=== PATIENT | female | born 1970 | race Two or more races ===

== ENCOUNTER 2025-02-06 00:50 | Emergency (ER) | payer MEDICAID, OTHER ==
[~2025-02-06] VITALS: Ht 162.6 cm; Wt 113.6 kg
[2025-02-06] MEDS: SODIUM CHLORIDE 0.9% 1,000 ML IV ONE (01:00)
--- NOTE | 2025-02-06 01:15 | ED.PDOC ---
GI ASSESSMENT HPI Comments 54-year-old female who came to ER for rectal pain. Patient does have history of hemorrhoids, has been complaining of rectal pain for over a month, that the worsened in the past 2 days. Denies any rectal bleeding or abdominal pain at this time. She reports rectal bleeding 6 months ago. Patient also complaining of headaches. REVIEW OF SYSTEMS: General: No fever, no chills, or fatigue HEENT: No sore throat, no earache, no congestion, no neck pain. Cardiac: No chest pain. No palpitations. Lungs: No shortness of breath, no cough. GI: No nausea, no vomiting, no diarrhea, no constipation, no abdominal pain, (+) rectal pain : No dysuria, frequency, or urgency. No hematuria. Musculoskeletal: No joint pain , no joint swelling, no extremity edema. Skin: No rash, no itching. Neuro: + headache, no dizziness, no weakness EXAM: General: Awake, alert and oriented. No acute distress. Skin: Skin in warm, dry and intact. Appropriate color for ethnicity. HEENT: The head is normocephalic and atraumatic. Conjunctivae are clear without exudates or hemorrhage. Sclera is non-icteric. EOM are intact. No signs of nystagmus. Eyelids are normal in appearance without swelling or lesions. Oral mucosa is pink and moist Neck: The neck is supple with normal range of motion. No JVD. Cardiac: Heart rate and rhythm are normal. No murmurs, gallops, or rubs are auscultated. Respiratory: No signs of respiratory distress. Lung sounds are clear in all lobes bilaterally without rales, rhonchi, or wheezes. Abdominal: Abdomen is soft, non-tender without distention. Bowel sounds are present and normoactive in all four quadrants. : Rectal exam-+ hemorrhoids.+tenderness. No active bleeding. Lidocaine jelly applied. Extremities: Upper and lower extremities are atraumatic in appearance without deformity or edema. Neurological: The patient is awake, alert and oriented to person, place, and time with normal speech. Speech is clear. There is no facial asymmetry. Psychiatric: Appropriate mood and affect. Good judgement and insight Chief Complaint: Rectal Pain Time Seen by MD: 01:15 Reviewed Notes: Nurses Notes Allergies: Coded Allergies: NO KNOWN ALLERGIES (Unverified , 02/06/25) Home Meds Active Scripts Witmckenna Shea-Glycerin (Tucks) 1 Pad Pd, 1 PAD TOP QIDPRN for 5 Days, #20 PAD Prov:BRY DUARTE MD 02/06/25 Lidocaine Hcl (Lidocaine) 5 % Oin, 5 % EX BIDPRN PRN for 5 Days, #30 G Prov:BRY DUARTE MD 02/06/25 Information Source: Patient Mode of Arrival: Ambulatory Past Medical History PAST MEDICAL HISTORY: Thyroid Surgical History: Denies all surgeries [employer] History: Denies all [employer] Hx Family History Family History: Reviewed,noncontributory to illness Social History Smoker: Non-Smoker Alcohol: Denies ETOH Use Drugs: Denies Drug Use Lives In: Home Was a procedure done? Was a procedure done?: No GI differential Dx Differential Diagnosis: Diverticular disease, Gastritis/PUD, Gastroenteritis, GI hemorrhage, Ischemic Bowel, Anemia X-Ray, Labs, Meds, VS Vital Signs Date Time Temp Pulse Resp B/P (MAP) Pulse Ox O2 Delivery O2 Flow Rate FiO2 02/06/25 07:28 97.7 67 18 113/67 (82) 97 97.7 02/06/25 04:00 98 Room Air* 0 21 02/06/25 04:00 98.0 76 18 124/68 (86) 98 98.0 02/06/25 01:06 97.8 64 18 130/79 97 97.8 Lab Test 02/06/25 10:37 Range/Units White Blood Count 3.9 L 4.4-10.8 10^3/uL Red Blood Count 4.57 4.0-5.20 10^6/uL Hemoglobin 13.8 12.2-16.2 g/dL Hematocrit 39.3 36.0-46.0 % Mean Corpuscular Volume 86.0 80.0-100.0 fL Mean Corpuscular Hemoglobin 30.2 28.0-32.0 pg Mean Corpuscular Hemoglobin Concent 35.1 32.0-36.0 g/dL Red Cell Distribution Width 13.0 11.8-14.3 % Platelet Count 168 140-450 10^3/uL Mean Platelet Volume 8.6 6.9-10.8 fL Neutrophils (%) (Auto) 48.0 37.0-80.0 % Lymphocytes (%) (Auto) 39.3 10.0-50.0 % Monocytes (%) (Auto) 8.9 0.0-12.0 % Eosinophils (%) (Auto) 2.8 0.0-7.0 % Basophils (%) (Auto) 1.0 0.0-2.0 % Neutrophils # (Auto) 1.9 1.6-8.6 10 ^3/uL Lymphocytes # (Auto) 1.5 0.4-5.4 10 ^3/uL Monocytes # (Auto) 0.3 0-1.3 10 ^3/uL Eosinophils # (Auto) 0.1 0-0.8 10 ^3/uL Basophils # (Auto) 0 0-0.2 10 ^3/uL Nucleated Red Blood Cells 0.2 % Sodium Level 143 136-145 mmol/L Potassium Level 3.8 3.5-5.1 mmol/L Chloride Level 107 98-107 mmol/L Carbon Dioxide Level 28 20-31 mmol/L Anion Gap 8 5-15 Blood Urea Nitrogen 12 9-23 mg/dL Creatinine 0.67 0.550-1.02 mg/dL Glomerular Filtration Rate Calc 104 >90 mL/min BUN/Creatinine Ratio 17.9 10.0-20.0 Serum Glucose 139 H 74-106 mg/dL Calcium Level 9.5 8.7-10.4 mg/dL Total Bilirubin Pending Aspartate Amino Transferase (AST) 27 13-40 U/L Alanine Aminotransferase (ALT) 28 7-40 U/L Alkaline Phosphatase 107 46-116 U/L Total Protein 8.0 5.7-8.2 g/dL Albumin 4.8 3.2-4.8 g/dL Current Medications Medications (Trade) Dose Ordered Sig/Josesito Route Start Time Stop Time Status Last Admin Ketorolac Tromethamine (Toradol Injection) 15 mg ONCE ONCE IV 02/06/25 04:00 02/06/25 04:01 DC 02/06/25 05:09 CT ABDOMEN/PELVIS : no acute findings. : I took over patient's care from Dr. Duarte at 6:00 a.m.. At this time we are awaiting CT results. Ultimately there was significant delay in obtaining CT results. After speaking to CT several times ultimately we are able to obtain results and demonstrates no acute pathology. There was delay in obtaining blood work also and ultimately blood work has been done and is normal. At this time I have spoken to the patient. Based on the chart suspect likely hemorrhoids. She has been given a prescription by Dr. Duarte. No evidence of acute pathology at this time.. Advised her to follow up with the PCP in 2-3 days and return to the ER if symptoms worsen or persist. Time of 1ST Reevaluation: 01:12 Reevaluation 1ST: Unchanged Patient Education/Counseling: Need For Follow Up Family Education/Counseling: No Family Present SEPSIS Sepsis Screen Date sepsis recognized/suspect: Feb 05, 2025 Time Sepsis recognized/suspect: 2224 Recent Procedure: No On Antibiotic Therapy: No Respiratory Rate >20: No Heart Rate >90: No Temp<36 C (96.8 F) or >38.3 C: No SBP <90 or MAP <65 mmHG: No New Acute Mental Status Change: No Is the patient on CPAP, BIPAP,: No Physician Orders Ct Ab Pel With Iv Con Only (02/06/25 01:26) Comprehensive Metabolic Panel (02/06/25 08:53) Vital Signs Date Time Temp Pulse Resp B/P (MAP) Pulse Ox O2 Delivery O2 Flow Rate FiO2 02/06/25 07:28 97.7 67 18 113/67 (82) 97 97.7 02/06/25 04:00 98 Room Air* 0 21 02/06/25 04:00 98.0 76 18 124/68 (86) 98 98.0 02/06/25 01:06 97.8 64 18 130/79 97 97.8 Laboratory Tests Test 02/06/25 10:37 White Blood Count 3.9 10^3/uL (4.4-10.8) L Medications Medications Dose Ordered Sig/Josesito Route Start Time Stop Time Status Last Admin Dose Admin Ketorolac Tromethamine 15 mg ONCE ONCE IV 02/06/25 04:00 02/06/25 04:01 DC 02/06/25 05:09 Departure 1 Departure Time of Disposition: 11:26 Impression: Primary Impression: Hemorrhoids Qualified Codes: K64.9 - Unspecified hemorrhoids Disposition: 01 HOME / SELF CARE / HOMELESS Condition: Stable Additional Instructions: ED DISCHARGE INSTRUCTIONS Instructions: Please read all instructions provided in this packet carefully. Although you have been discharged from the Emergency Department, this does not mean that you have a "clean bill of health". No definitive diagnosis for your symptoms has been made today. It is possible that you are in the process of developing a serious illness. This is why you must return to the ED without fail if any new or worsening symptoms (especially if your symptoms include chest pain, trouble breathing, abdominal pain, fever, headache, confusion, trouble seeing, or trouble walking) It is also very important that you see a primary care provider (PCP) within the next 3-5 days to follow up. If you are unable to get an appointment, return to the ED for re-evaluation. Hemorrhoids: Care Instructions Overview Hemorrhoids are swollen veins that develop in the anal canal. Bleeding during bowel movements, itching, and rectal pain are the most common symptoms. Hemorrhoids can be uncomfortable at times, but rarely are they a serious problem. Most of the time, you can treat them with simple changes to your diet and bowel habits. These changes include eating more fiber and not straining to pass stools . Most hemorrhoids don't need surgery or other treatment unless they are very large and painful or bleed a lot. Follow-up care is a baldwin part of your treatment and safety. Be sure to make and go to all appointments, and call your doctor if you are having problems. It's also a good idea to know your test results and keep a list of the medicines you take. How can you care for yourself at home? Sit in a few inches of warm water (sitz bath) 3 times a day and after bowel movements. The warm water helps with pain and itching. Put ice on your anal area several times a day for 10 minutes at a time. Put a thin cloth between the ice and your skin. Follow this by placing a warm, wet towel on the area for another 10 to 20 minutes. Take pain medicines exactly as directed. If the doctor gave you a prescription medicine for pain, take it as prescribed. If you are not taking a prescription pain medicine, ask your doctor if you can take an crxs-vtk-jcewalh medicine. Keep the anal area clean, but be gentle. Use water and a fragrance-free soap, or use baby wipes or medicated pads such as Tucks. Wear cotton underwear and loose clothing to decrease moisture in the anal area. Eat more fiber. Include foods such as whole-grain breads and cereals, raw vegetables, raw and dried fruits, and beans. Drink plenty of fluids. If you have kidney, heart, or liver disease and have to limit fluids, talk with your doctor before you increase the amount of fluids you drink. Use a stool softener that contains bran or psyllium. You can save money by buying bran or psyllium (available in bulk at most [employer] food stores) and sprinkling it on foods or stirring it into fruit juice. Or you can use a product such as Metamucil or Hydrocil. Practice healthy bowel habits. Go to the bathroom as soon as you have the urge. Avoid straining to pass stools. Relax and give yourself time to let things happen naturally. Do not hold your breath while passing stools. Do not read while sitting on the toilet. Get off the toilet as soon as you have finished. Take your medicines exactly as prescribed. Call your doctor if you think you are having a problem with your medicine. When should you call for help? Call 911 anytime you think you may need emergency care. For example, call if: You pass maroon or very bloody stools. Call your doctor now or seek immediate medical care if: You have increased pain. You have increased bleeding. Watch closely for changes in your health, and be sure to contact your doctor if: Your symptoms have not improved after 3 or 4 days. Credits for Hemorrhoids: Care Instructions Current as of: March 07, 2024 Author: [employer] Staff Clinical Review Board All [employer] education is reviewed by a team that includes physicians, nurses, advanced practitioners, registered dieticians, and other healthcare professionals. e-Prescriptions Witch Shea-Glycerin (Tucks) 1 Pad Pd 1 PAD TOP QIDPRN for 5 Days, #20 PAD Prov: BRY DUARTE MD 02/06/25 Lidocaine Hcl (Lidocaine) 5 % Oin 5 % EX BIDPRN PRN for 5 Days, #30 G Prov: BRY DUARTE MD 02/06/25 Discharged With: Self Comments Critical Care Note Critical Care Time?: No Stability Stability form required: No I personally scribed for [facility] on 02/06/25 at 01:15. Electronically submitted by Peña Urbina ([facility]). I personally scribed for BRY DUARTE MD ([email or web address]) on 02/06/25 at 09:09. Electronically submitted by Kendal Riggs ([email or web address]). BRY DUARTE MD Feb 06, 2025 01:15 KAREY DELGADO MD Feb 06, 2025 11:26
[2025-02-06 04:00] VITALS: O2SAT 98
[2025-02-06] MEDS: KETOROLAC TROMETH 30 MG/ML 1ML VIAL IV ONE (05:09)
[2025-02-06] MEDS: IOHEXOL 300 MG/ML 100ML BOTTLE IJ ONE (05:13)
[2025-02-06] MEDS ORDERED: LID35TP EX (05:40)
[2025-02-06] MEDS ORDERED: TUCKS TOP (05:40)
[2025-02-06] MEDS ORDERED: NYSTATIN-TRIAMCINOLONE TOPICAL CRE 15GM TOP ONE (06:15)
[2025-02-06] MEDS: NYSTATIN TOPICAL POWDER 15GM TOP ONE (06:42)
[2025-02-06 10:58] LABS: Hematocrit 39.3 % (36.0-46.0); Hemoglobin 13.8 g/dL (12.2-16.2); Mean Corpuscular Hemoglobin 30.2 pg (28.0-32.0); Mean Corpuscular Volume 86.0 fL (80.0-100.0); Nucleated Red Blood Cells % 0.2 %
[2025-02-06 11:09] LABS: Alanine Aminotransferase 28 U/L (7-40); Albumin 4.8 g/dL (3.2-4.8); Alkaline Phosphatase 107 U/L (46-116); Anion Gap 8 (5-15); BUN/Creatinine Ratio 17.9 (10.0-20.0); Bilirubin, Total 0.7 mg/dL (0.2-1.0); Blood Urea Nitrogen 12 mg/dL (9-23); Calcium 9.5 mg/dL (8.7-10.4); Carbon Dioxide 28 mmol/L (20-31); Chloride 107 mmol/L (98-107); Glucose 139 mg/dL (74-106); Potassium 3.8 mmol/L (3.5-5.1); Sodium 143 mmol/L (136-145); Total Protein 8.0 g/dL (5.7-8.2)
[2025-02-06] MEDS ORDERED: LEVO-849 PO (11:57)
[2025-02-06] MEDS ORDERED: NYST150P2 XX (11:57)
[2025-02-06] MEDS ORDERED: LEVO25TA6 PO (11:57)
[2025-02-06 12:03] VITALS: BP 118/65; PULSE 64; RESP 18; TEMP 98; O2SAT 96
== END 2025-02-06 12:28 | disposition home or self-care (01) ==
LOC: ER 00:50
DX: I10 Essential (primary) hypertension (principal); K64.9 Unspecified hemorrhoids; Z79.899 Other long term (current) drug therapy; Z87.19 Personal history of other diseases of the digestive system
CPT/HCPCS: 36415; 80053; 85025; 96374; 99283; J1885; Q9967